=== PATIENT | male | born 1950 | race Caucasian/White ===

== ENCOUNTER 2016-10-28 22:09 | Inpatient (IN) | payer OTHER ==
--- NOTE | ~2016-10-28 | DS ---
Discharge Summary [facility] [address] [place]. [address] NAME: ESTEFANIA DICKSON : 52 STATUS : DIS IN PAT#: [id number] AGE: 66 ADM/REG DATE : 10/28/16 MR#: [id number] REPORT SERV DATE: 11/01/16 DICTATED BY: LONNY MCKEON DATE: 10/31/16 REPORT STATUS : Draft TRANSCRIBED BY: MODL DATE: 10/31/16 ADMISSION DATE: 10/28/2016 DISCHARGE DATE: 10/31/2016 DISCHARGE DIAGNOSES: 1. Dehydration, currently resolved. 2. Acute kidney injury, now resolved. 3. Head and neck cancer scheduled to see Dr. Shannon Aguiar of Hematology/Oncology and Dr. Judith Wesley of Radiation Oncology in [place], [place]. 4. Chronic obstructive pulmonary disease. 5. Type 2 diabetes mellitus. 6. Hypothyroidism. 7. Hypertension. 8. Chronic pain syndrome. CONSULTANTS DURING THIS HOSPITALIZATION: 1. Dr. Jose Morrow of Gastroenterology. 2. Dr. De Oliveira of ENT. INVASIVE PROCEDURES DONE DURING THIS HOSPITALIZATION: Placement of a PEG tube. BRIEF HISTORY OF PRESENT ILLNESS: The patient is a 66-year-old male presented with hemoptysis and inability to swallow and mouth pain. For detailed history and physical exam, please see note dictated by Dr. Bc Hunter on 10/28/2016. HOSPITAL COURSE: After being admitted to the hospital, this patient was monitored. Serial H and Hs were done. He was noted to have acute kidney injury. We give him aggressive IV fluids. He continued to do well. He needed chemo and radiation therapy which have been scheduled outpatient. Dr. De Oliveira saw the patient in consultation. Requested records from [facility] which were placed on the chart as he has already been scheduled to see Dr. Aguiar for his head and neck cancer for chemo and Dr. Wesley for radiation therapy. Dr. De Oliveira recommended that we go ahead and place a PEG tube. PEG tube was placed. This patient is tolerating tube feeds, and we have arranged tube feeds in the home setting. He will do bolus feedings 6 cans per day of ProSource. He continues to do well. We have replaced his pain medications again with oxycodone that he takes in the outpatient setting four times daily or every six hours. He is stable medically and is being discharged in stable condition. DISCHARGE DISPOSITION: Home. DISCHARGE ACTIVITY: As tolerated. DISCHARGE DIET: Six cans of ProSource per day and by mouth liquids as tolerated. DISCHARGE FOLLOWUP: With Dr. Shannon Aguiar as scheduled, with Dr. Wesley as scheduled, and with Dr. Manuel Arias as scheduled. Discharge Summary [address] [place]. [address] NAME: ESTEFANIA DICKSON : 52 STATUS : DIS IN PAT#: [id number] AGE: 66 ADM/REG DATE : 10/28/16 MR#: [id number] REPORT SERV DATE: 11/01/16 DICTATED BY: LONNY MCKEON DATE: 10/31/16 REPORT STATUS : Draft TRANSCRIBED BY: MARCIO DATE: 10/31/16 More than 30 minutes spent planning this patient's discharge, reconciling medications, discussing hospital care, and followup with the patient arranging tube feedings in the home setting and documenting this discharge. TONY/MARCIO Lonny Mckeon M.D. / [id number] CC: Lissette Barnes MD Lisa Virostek, M.D. AZHAR SHEIKH, MD
--- NOTE | ~2016-10-28 | EGD ---
EGD REPORT [facility] [address] [place] [address] NAME: NICHOLAS BLOOD : 52 STATUS : ADM IN PAT#: [id number] AGE: 66 ADM/REG DATE : 10/28/16 MR#: [id number] REPORT SERV DATE: 10/30/16 DICTATED BY: MONTSE ARRIAGA DATE: 10/30/16 REPORT STATUS : Draft TRANSCRIBED [facility]: [facility] DATE: 10/30/16 Endoscopy Center Patient Name: Nicholas Blood. 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 Estimated blood loss: Minimal. Procedure: Pre-Anesthesia Assessment: - ASA Grade Assessment: IV - A patient with severe systemic disease that is a constant threat to life. After obtaining informed consent, the endoscope was passed under direct vision. Throughout the procedure, the patient's blood pressure, pulse, and oxygen saturations were monitored continuously. The GIF [id number] was introduced through the mouth, and advanced to the second part of duodenum. The upper GI endoscopy was accomplished without difficulty. The patient tolerated the procedure well. Findings: The examined esophagus was normal. Diffuse mildly erythematous mucosa without bleeding was found in the entire examined stomach. Patchy mild inflammation characterized by erythema was found in the duodenal bulb. Placement of an externally removable PEG with no T-fasteners was successfully completed. The external bumper was at the 3.0 cm marking on the tube. Estimated blood loss was minimal. Impression: - Normal esophagus. - Erythematous mucosa in the stomach. - Duodenitis. - An externally removable PEG placement was successfully completed. Recommendation: - Return patient to [facility] for [facility] care. - NPO today. - Please follow the post-PEG recommendations including: change dressing once per day, check site for bleeding q EGD REPORT [address] [address] NAME: NICHOLAS BLOOD : 52 STATUS : ADM IN [facility]#: [id number] AGE: 66 ADM/REG DATE : 10/28/16 MR#: [id number] REPORT SERV DATE: 10/30/16 DICTATED BY: MONTSE ARRIAGA DATE: 10/30/16 REPORT STATUS : Draft TRANSCRIBED BY: [employer] DATE: 10/30/16 4 hrs, clean site with soap and water daily and dry thoroughly, may use PEG today for meds and water and may use PEG tomorrow for feedings. 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 All rights reserved. The codes documented in this report are preliminary and upon railroad auditor review may be revised to meet current compliance requirements. MONTSE ARRIAGA MD 10/30/2016 11:30 AM This report has been signed electronically. Number of Addenda: 0 Note Initiated On: 10/30/2016 11:00 AM Scope Withdrawal Time 0 hours 0 minutes 0 seconds [address] [place] [address]
--- NOTE | ~2016-10-28 | HP ---
History And Physical [place] [id number] [facility] [place]. [address] NAME: LULÚ DOWNEY : 52 STATUS : ADM IN [facility]#: [id number] AGE: 66 ADM/REG DATE : 10/28/16 MR#: [id number] REPORT SERV DATE: 10/29/16 DICTATED BY: PATITO HUNTER DATE: 10/28/16 REPORT STATUS : Draft TRANSCRIBED BY: MODL DATE: 10/28/16 DATE OF ADMISSION: 10/28/2016 IDENTIFYING DATA: A 66-year-old white male whose PCP is Dr. Manuel Arias; Ear, Nose, and Throat, Dr. De Oliveira. He has a pain management doctor, but he does not recall the name. CHIEF COMPLAINT: Inability to swallow and mouth pain. HISTORY OF PRESENT ILLNESS: This history of present illness is obtained by talking directly with the patient as well as reviewing the records that came with him from [facility] as well as reviewing the little that is on [employer] as there were no records in [facility]. The patient has great difficulty enunciating, he, as best I can tell, started having pain in the right ear and then in the throat and tongue about four months ago. He describes various bumps and knots coming up in his mouth. It sounds like he sought Ear, Nose, and Throat about two weeks ago. 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 He has not had any treatment yet. He answered yes when I asked him if he was supposed to see a radiation specialist in the future. He states he has not seen any cancer specialist yet. He describes at least a week of difficulty swallowing anything, even water. He has not been able to take his medicines. Because of this, he went to the emergency room at [facility] where his white count was 20,000, and his BUN was 34, creatinine was 1.72, heart rate was 134, CO2 was 19 and he was felt to need inpatient care. He was felt to probably need a feeding tube placement. He chose to come here. REVIEW OF SYSTEMS: He has some urinary incontinence. Occasional ankle edema. He has no rash and no headache. He has lost on to specify amount of weight in recent weeks. He denies fever, cough, chest pain, shortness of breath, abdominal pain, nausea, vomiting, diarrhea, rectal bleeding, melena, dysuria, urinary hesitancy, or anorexia or falls. ALLERGIES: NO KNOWN DRUG ALLERGIES. PAST MEDICAL HISTORY: He denies any history of heart disease, stroke, seizure, peptic ulcer, biliary tract disease, liver disease, chronic kidney disease, kidney stones, or sleep apnea. He denies any history of tuberculosis in the past. He has had diabetes mellitus he states for 40 years. He has hypothyroidism. He has hypertension. He has COPD. He has chronic pain in his back and hip. Previously, he was hospitalized for what sounds like a "flesh eating infection" in his right leg. He had skin grafts, incision and drainage. He had a trach and a PEG. It sounds like he was at [facility] for that. HOME MEDICATIONS: Atrovent nasal spray b.i.d., Colace 100 mg b.i.d., Cymbalta 60 mg once a day, Tylenol p.r.n., Lipitor 20 mg daily, folic acid 1 mg daily, furosemide 20 mg daily; glipizide 5 mg daily, levothyroxine 5 mcg daily, lisinopril 20 mg daily, Percocet 10/325 q.6 hours p.r.n. chronic back pain, Phenergan 25 mg q.6 hours p.r.n. nausea. History And Physical [address] [address] NAME: LULÚ DOWNEY : 52 STATUS : ADM IN [facility]#: [id number] AGE: 66 ADM/REG DATE : 10/28/16 MR#: [id number] REPORT SERV DATE: 10/29/16 DICTATED BY: PATITO HUNTER DATE: 10/28/16 REPORT STATUS : Draft TRANSCRIBED BY: MARCIO DATE: 10/28/16 PAST SURGICAL HISTORY: He has had bilateral hip surgery. He had incision and drainage and then skin flaps and muscle flaps on his legs, this was in 2009 at [facility] it sounds like. SOCIAL HISTORY: He has been a smoker of a pack per day. He used to be more than that. He admits he used to drink a six-pack of beer every day after work. He quit "a long time ago." He states he has worked in the past in the [employer] business. He lives with his . He walks without any assistive device. FAMILY HISTORY: He says he cannot tell me anything about the health of his mom, dad, brothers, or sisters. DIAGNOSTIC DATA: The labs that were sent with him from [facility] emergency room this evening revealed white count of 20,000, hemoglobin 12.8, MCHC microcytic at 31.6, platelets 318,000. Sodium 135, potassium 4, chloride 100, CO2 is 19, calculated anion gap is 16, BUN is 34, creatinine 1.72, glucose 151. Total protein 8.4, globulin 4.4. The rest of the CMP was normal. A soft tissue x-ray of the neck was read by radiologist at [facility] to show that the airway is open without evidence of obstruction, dense calcifications in the bilateral carotid artery bifurcations, degenerative changes of arthritis in the cervical spine, greatest toward the lower levels. PHYSICAL EXAMINATION: VITAL SIGNS: Temp is 98.2, pulse is 112, respirations 16, blood pressure 128/79, O2 saturation is 98% on room air, weight is 171.2. GENERAL: Well-developed male, who appears older than his stated age. Chronically ill and uncomfortable now with difficulty swallowing. HEENT: Head is atraumatic. Pupils are equal, round, and reactive to light. Extraocular motions are intact. No scleral icterus noted. Ear canals and TMs unremarkable with no inflammatory changes noted on the ears externally and normal hearing bilaterally. Nose, noninflamed externally. Septum midline. Nares patent. Mouth, he has an enlargement of the left half of the tongue, it bulges upward. He has a very poor gag. He has no erythema in the throat, no thrush. NECK: Supple. He has tender submandibular lymph nodes on the right greater than on the left. No bruits noted in the neck. There is a scar from a previous tracheotomy in his lower neck. LUNGS: Slightly prolonged expiratory phase. Fair air flow. No wheezes, no rhonchi. Normal respiratory effort. HEART: Tachycardic and regular without gallop, click, murmur, or rub. ABDOMEN: Bowel sounds are positive. Soft, nondistended, nontender. No masses. No organomegaly. There is a scar from the previous G-tube in his left upper quadrant that is well healed and holed. EXTREMITIES: Warm. He has clubbing, no cyanosis, no edema. He has tanned skin and he admits he has been out in the sun a lot. NEUROLOGIC: He is alert. He is calm. His speech is difficult at times to understand. It has bulbar characteristics. It is appropriate once I do understand. His motor strength in his hands 2/5, in his legs appear to be 2/5. No Babinski. No clonus noted. History And Physical [address] [place]. [address] NAME: LULÚ DOWNEY : 52 STATUS : ADM IN PAT#: [id number] AGE: 66 ADM/REG DATE : 10/28/16 MR#: [id number] REPORT SERV DATE: 10/29/16 DICTATED BY: PATITO HUNTER DATE: 10/28/16 REPORT STATUS : Draft TRANSCRIBED BY: MARCIO DATE: 10/28/16 ASSESSMENT: 1. Volume depletion with sinus tachycardia and acute kidney injury versus chronic kidney disease since we do not know his baseline along with an anion gap metabolic acidosis. This is all most likely related to his active malignancy and decreased oral intake, but we do have to be cautious with the fact that he may have infection as well. 2. Leukocytosis that could be stress related or infection. 3. 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 We notably have the data on his PET scan to see staging. 4. Chronic obstructive pulmonary disease. 5. History of diabetes for 40 years. 6. History of hypothyroidism. 7. History of hypertension. 8. Previous majors soft tissue infection in his right leg. It sounds like he was in Critical Care. He had a trach and a PEG. PLAN: The patient is being admitted to the oncology floor. We are going to try to get the PET scan results. We are also going to ask his Ear[facility] N[facility], and Throat to see him, to bring their records with the pathology report. We are going to supplement IV fluids, give him parental pain and nausea medicines. We will have the chest x-ray done. We will get blood cultures done. We will check a urine strep and Legionella antigen. We will check procalcitonin. DAVID/MARCIO Patito Hunter M.D. / [id number] CC: MD James Ramachandran II, M.D.
--- NOTE | ~2016-10-28 | CN ---
Consultation Report [address] [place]. [address] NAME: ESTEFANIA DICKSON : 52 STATUS : ADM IN PAT#: [id number] AGE: 66 ADM/REG DATE : 10/28/16 MR#: [id number] REPORT SERV DATE: 10/30/16 DICTATED BY: JOSE ARRIAGA DATE: 10/30/16 REPORT STATUS : Draft TRANSCRIBED BY: MODL DATE: 10/30/16 GI CONSULTATION DATE OF CONSULTATION: 10/30/2016 HISTORY OF PRESENT ILLNESS: The patient is a 66-year-old gentleman whom I am consulted for PEG tube. The patient was diagnosed with tongue cancer four weeks ago. He has been having problems with swallowing and nausea and vomiting. He cannot clear his secretions and spits up some blood tinged material. He has had a PEG tube in the past with some sort of injury to his leg. He has been losing weight and is malnourished at this point. PAST MEDICAL HISTORY: The patient has had bilateral hip replacements, and multiple skin flaps. He has no liver disease. No history of peptic ulcer disease. He does have a history of hypertension, COPD, diabetes mellitus, hypothyroidism. MEDICATIONS: Reviewed. ALLERGIES: NONE. SOCIAL HISTORY: The patient is a one-pack per day smoker, has three to five beers. PHYSICAL EXAMINATION: GENERAL: The patient is a chronically ill-appearing, white male. LUNGS: Show a few scattered rhonchi. CARDIOVASCULAR: Regular rhythm. ABDOMEN: Soft. There are no masses. No tenderness to palpation. LABORATORIES: Reviewed. ASSESSMENT: 1. 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 2. Chronic obstructive pulmonary disease. 3. Hypertension. 4. Diabetes mellitus. RECOMMENDATION: Agree with gastrostomy placement prior to initiating radiation therapy. Certainly with the dysphagia, need to make sure there is no tumor involvement here, but I suspect this is more of an oropharyngeal dysphagia. ELMA/MARCIO Jose Consultation Report [address] [place]. [address] NAME: ESTEFANIA DICKSON : 52 STATUS : ADM IN PAT#: [id number] AGE: 66 ADM/REG DATE : 10/28/16 MR#: [id number] REPORT SERV DATE: 10/30/16 DICTATED BY: JOSE ARRIAGA DATE: 10/30/16 REPORT STATUS : Draft TRANSCRIBED BY: MODL DATE: 10/30/16 Lissette Arriaga / [id number] CC: Lonny Mckeon M.D.
[2016-10-29 00:48] LABS: ULTRASENSITIVE TSH 1.05 MCIU/ML (0.358-3.740)
[2016-10-29 01:20] LABS: PROCALCITONIN 0.08 ng/mL (<0.5)
[2016-10-29 05:15] LABS: BASOPHILS 0.1 %; BASOPHILS ABSOLUTE 0.02 10/3/uL (0.0-0.16); EOSINOPHILS 0.1 %; EOSINOPHILS ABSOLUTE 0.01 10/3/uL (0.0-0.53); HEMOGLOBIN 11.7 g/dL (13.6-17.8); IMMATURE GRANULOCYTES 0.4 %; IMMATURE GRANULOCYTES ABSOLUTE 0.06 10/3/uL (0.0-0.11); LYMPHOCYTES 8.6 %; LYMPHOCYTES ABSOLUTE 1.41 10/3/uL (0.67-4.30); MEAN PLATELET VOLUME 10.6 fL (9.2-13.0); MONOCYTES ABSOLUTE 1.31 10/3/uL (0.21-1.20); NEUTROPHILS 82.8 %; NEUTROPHILS ABSOLUTE 13.64 10/3/uL (2.02-8.40); RBC DISTRIBUTION WIDTH 14.7 % (12.0-16.0); RED CELL COUNT 4.13 10/6/uL (4.7-6.1)
[2016-10-29 05:20] LABS: HEMATOCRIT 35.7 % (40.0-51.0); MANUAL DIFF NO %; MEAN CORPUS HGB CONC 32.8 g/dL (32.0-36.0); MEAN CORPUSCULAR HEMOGLOB 28.3 pg (26.0-34.0); MEAN CORPUSCULAR VOLUME 86.4 fL (80-100); PLATELET COUNT 280 10/3/uL (150-400); WHITE BLOOD CELLS 16.5 10/3/uL (4.5-10.5)
[2016-10-29 05:29] LABS: INTERNATIONAL NORMAL RATI 1.2 UNITS (-); PROTIME (NOT ORD) 14.6 SEC (12.0-14.5)
[2016-10-29 05:32] LABS: A/G RATIO 0.6 (0.7-1.9); ALKALINE PHOSPHATASE 101 U/L (45-117); BUN (BLOOD UREA NITROGEN) 29 MG/DL (6-23); CHLORIDE, SERUM 108 MMOL/L (96-112); CO2 (CARBON DIOXIDE) 21 MMOL/L (24-34); CREATININE 1.22 MG/DL (0.70-1.30); GFR AFRICAN AMERICAN 72 ML/MIN (>=60); GFR NON AFRICAN AMERICAN 62 ML/MIN (>=60); GLOBULIN 4.8 G/DL (2.5-4.1); GLUCOSE, SERUM 125 MG/DL (60-99); POTASSIUM, SERUM 3.8 MMOL/L (3.5-5.3); SGOT(AST) 10 U/L (5-40); SGPT(ALT) 10 U/L (5-65); SODIUM, SERUM 140 MMOL/L (135-148); TOTAL BILIRUBIN 0.3 MG/DL (0-1.2); TOTAL PROTEIN 7.8 G/DL (6.0-8.5)
[2016-10-29] MEDS ORDERED: PRIN20 PO (16:15)
[2016-10-29] MEDS ORDERED: GLUCOTROL5 PO (16:15)
[2016-10-29] MEDS ORDERED: CYMBALTA60 PO (16:15)
[2016-10-29] MEDS ORDERED: FLEX PO (16:15)
[2016-10-29] MEDS ORDERED: L20 PO (16:15)
[2016-10-29] MEDS ORDERED: LIPITOR20 PO (16:16)
[2016-10-29] MEDS ORDERED: PR25 PO (16:16)
[2016-10-29] MEDS ORDERED: OXYCOD PO (16:16)
[2016-10-29] MEDS ORDERED: LEVOTHYROXIN50 MCG PO (16:16)
[2016-10-29 18:35] LABS: HEMOGLOBIN 10.9 g/dL (13.6-17.8)
[2016-10-29 22:41] LABS: HEMATOCRIT 33.3 % (40.0-51.0); HEMOGLOBIN 10.9 g/dL (13.6-17.8)
[2016-10-30 06:16] LABS: BASOPHILS 0.2 %; BASOPHILS ABSOLUTE 0.02 10/3/uL (0.0-0.16); EOSINOPHILS 0.7 %; EOSINOPHILS ABSOLUTE 0.07 10/3/uL (0.0-0.53); HEMATOCRIT 32.1 % (40.0-51.0); HEMOGLOBIN 10.4 g/dL (13.6-17.8); IMMATURE GRANULOCYTES 0.4 %; IMMATURE GRANULOCYTES ABSOLUTE 0.04 10/3/uL (0.0-0.11); MEAN CORPUS HGB CONC 32.4 g/dL (32.0-36.0); MEAN CORPUSCULAR HEMOGLOB 28.5 pg (26.0-34.0); MEAN CORPUSCULAR VOLUME 87.9 fL (80-100); MEAN PLATELET VOLUME 9.9 fL (9.2-13.0); MONOCYTES 8.6 %; MONOCYTES ABSOLUTE 0.81 10/3/uL (0.21-1.20); NEUTROPHILS 72.1 %; NEUTROPHILS ABSOLUTE 6.79 10/3/uL (2.02-8.40); PLATELET COUNT 259 10/3/uL (150-400); RBC DISTRIBUTION WIDTH 14.7 % (12.0-16.0); RED CELL COUNT 3.65 10/6/uL (4.7-6.1)
[2016-10-30 06:21] LABS: MANUAL DIFF NO %; WHITE BLOOD CELLS 9.4 10/3/uL (4.5-10.5)
[2016-10-30 06:24] LABS: INTERNATIONAL NORMAL RATI 1.2 UNITS (-); PROTIME (NOT ORD) 15.1 SEC (12.0-14.5)
[2016-10-30 06:28] LABS: CALCIUM, SERUM 9.6 MG/DL (8.5-10.4); CHLORIDE, SERUM 112 MMOL/L (96-112); CREATININE 1.07 MG/DL (0.70-1.30); GFR AFRICAN AMERICAN 84 ML/MIN (>=60); GFR NON AFRICAN AMERICAN 72 ML/MIN (>=60); GLUCOSE, SERUM 104 MG/DL (60-99); POTASSIUM, SERUM 4.1 MMOL/L (3.5-5.3); SODIUM, SERUM 146 MMOL/L (135-148)
[2016-10-30 06:30] LABS: BUN (BLOOD UREA NITROGEN) 33 MG/DL (6-23); CO2 (CARBON DIOXIDE) 27 MMOL/L (24-34)
[2016-10-31 04:00] LABS: BASOPHILS 0.3 %; BASOPHILS ABSOLUTE 0.03 10/3/uL (0.0-0.16); HEMATOCRIT 30.6 % (40.0-51.0); HEMOGLOBIN 9.9 g/dL (13.6-17.8); IMMATURE GRANULOCYTES 0.3 %; IMMATURE GRANULOCYTES ABSOLUTE 0.03 10/3/uL (0.0-0.11); LYMPHOCYTES ABSOLUTE 1.53 10/3/uL (0.67-4.30); MEAN CORPUS HGB CONC 32.4 g/dL (32.0-36.0); MEAN CORPUSCULAR HEMOGLOB 28.6 pg (26.0-34.0); MEAN CORPUSCULAR VOLUME 88.4 fL (80-100); MEAN PLATELET VOLUME 9.9 fL (9.2-13.0); MONOCYTES 6.7 %; MONOCYTES ABSOLUTE 0.64 10/3/uL (0.21-1.20); NEUTROPHILS 75.7 %; NEUTROPHILS ABSOLUTE 7.23 10/3/uL (2.02-8.40); PLATELET COUNT 275 10/3/uL (150-400); RBC DISTRIBUTION WIDTH 14.7 % (12.0-16.0); RED CELL COUNT 3.46 10/6/uL (4.7-6.1); WHITE BLOOD CELLS 9.6 10/3/uL (4.5-10.5)
[2016-10-31 04:02] LABS: MANUAL DIFF NO %
[2016-10-31 04:21] LABS: ALBUMIN 2.6 G/DL (3.5-5.0); BUN (BLOOD UREA NITROGEN) 27 MG/DL (6-23); CALCIUM, SERUM 9.7 MG/DL (8.5-10.4); CHLORIDE, SERUM 113 MMOL/L (96-112); CO2 (CARBON DIOXIDE) 24 MMOL/L (24-34); CREATININE 0.95 MG/DL (0.70-1.30); GFR AFRICAN AMERICAN 97 ML/MIN (>=60); GFR NON AFRICAN AMERICAN 84 ML/MIN (>=60); GLUCOSE, SERUM 98 MG/DL (60-99); PHOSPHORUS, SERUM 2.6 MG/DL (2.5-4.5); POTASSIUM, SERUM 3.8 MMOL/L (3.5-5.3); SODIUM, SERUM 149 MMOL/L (135-148)
== END 2016-10-31 18:00 | disposition home health service (06) | DRG 146 ==
LOC: 4EA 22:09
PROVIDERS: Internal Medicine; Nurse Practitioner Family
PROC: 0DH63UZ Insertion of Feeding Device into Stomach, Percutaneous Approach (ICD-10-PCS; principal; 2016-10-28)
DX: C76.0 Malignant neoplasm of head, face and neck (principal); E43 Unspecified severe protein-calorie malnutrition; N17.9 Acute kidney failure, unspecified; E87.2 Acidosis; E11.22 Type 2 diabetes mellitus with diabetic chronic kidney disease; I12.9 Hypertensive chronic kidney disease with stage 1 through stage 4 chronic kidney disease, or unspecified chronic kidney disease; N18.9 Chronic kidney disease, unspecified; E03.9 Hypothyroidism, unspecified; J44.9 Chronic obstructive pulmonary disease, unspecified; Z68.22 Body mass index [BMI] 22.0-22.9, adult
CPT/HCPCS: 71010; 80048; 80053; 80069; 82962; 83036; 84145; 84443; 85014; 85018; 85025; 85610; 87040; 93005; 97161-GP; A9270-GY; C9113